=== PATIENT | male | born 1950 | race Two or more races ===

== ENCOUNTER 2019-11-08 16:57 | Emergency (ER) | payer OTHER ==
[~2019-11-08] VITALS: Ht 182.9 cm; Wt 81.6 kg
[~2019-11-08 16:57] MED LIST: ALDACTONE25 MG; ALTACE5 MG; ASA81 MG; ATORVASTATIN CA80 MG; COUMADIN5 MG; CRESTOR5 MG; DOXAZOSIN MESYLA2 MG; ELIQUIS5 MG; FLORAVANCE CAP1 EACH; LANOXIN0.25 MG; LOVAZA1 G; NEXIUM40 MG/PACK; TAMS0.4C; TOPROL XL100 MG; TOPROL XL50 M1; ZANTAC150 M1
[2019-11-08] MEDS ORDERED: TOPROL XL100 M1 (17:14)
[2019-11-08] MEDS ORDERED: LEVOTHYROXINE25 MCG (17:15)
[2019-11-08] MEDS ORDERED: ELIQUIS2.5 MG (17:16)
[2019-11-08] MEDS ORDERED: ACID REDUCER20 M1 (17:16)
== END 2019-11-08 22:00 | disposition home or self-care (01) ==
LOC: ER
DX: R10.13 Epigastric pain (principal); R10.32 Left lower quadrant pain; R19.5 Other fecal abnormalities

== ENCOUNTER 2019-11-21 07:28 | Outpatient (CLI) | payer OTHER ==
[~2019-11-21 07:28] MED LIST changes: +ACID REDUCER20 M1; +ELIQUIS2.5 MG; +LEVOTHYROXINE25 MCG; +TOPROL XL100 M1
== END 2019-11-21 08:25 | disposition home or self-care (01) ==
LOC: LAB 07:28
PROVIDERS: ATTEND Internal Medicine Hematology & Oncology
DX: D70.8 Other neutropenia (principal); E55.9 Vitamin D deficiency, unspecified; K76.89 Other specified diseases of liver; D89.0 Polyclonal hypergammaglobulinemia; M06.89 Other specified rheumatoid arthritis, multiple sites

== ENCOUNTER 2019-11-21 08:21 | Outpatient (CLI) | payer OTHER | END 2019-11-21 08:38 | disposition home or self-care (01) | LOC: TOM 08:21 | PROVIDERS: ATTEND Urology | DX: R31.21 Asymptomatic microscopic hematuria (principal) | CPT/HCPCS: 74177; Q9965 ==

== ENCOUNTER 2019-12-15 11:09 | Outpatient (CLI) | payer OTHER | END 2019-12-15 11:19 | disposition home or self-care (01) | LOC: LAB 11:09 | PROVIDERS: ATTEND Internal Medicine Hematology & Oncology | DX: D69.49 Other primary thrombocytopenia (principal); K76.89 Other specified diseases of liver ==